=== PATIENT | male | born 2000 | race Caucasian/White ===

== ENCOUNTER 2021-12-04 23:35 | Emergency (ER) | payer BC ==
[2021-12-05 00:31] LABS: CHLORIDE,CL 101 mmol/L (98-107); SODIUM,NA 140 mmol/L (136-145)
[2021-12-05 00:34] LABS: ANION GAP 16.6 mmol/L (5-15); ESTIMATED GFR 125 mL/min (>=60)
[2021-12-05] MEDS ORDERED: Take Home: Sulfamethoxazole/Trimethoprim 800-160 MG Tab, 2 Tab Pack PO ONE (00:39)
[2021-12-06 11:06] LABS: C.TRACHOMATIS BY TMA Negative (Negative); N.GONORRHOEAE BY TMA Negative (Negative)
== END 2021-12-05 00:56 | disposition home or self-care (01) ==
LOC: VM.ED 23:35
DX: N39.0 Urinary tract infection, site not specified (principal); Z72.0 Tobacco use
CPT/HCPCS: 36415; 80053; 81001; 85025; 86140; 87086; 87491; 87591; 99283; 99284; A9270-GY